=== PATIENT | female | born 2000 | race Caucasian/White ===

== ENCOUNTER → 2021-01-13 07:42 | Outpatient (CLI) | payer OTHER, SELFPAY ==
--- NOTE | 2021-01-13 07:44 | DI.US.S_ITS ---
PROCEDURE: US OB >= 14 WEEKS FETUS INDICATIONS: ANATOMY SCAN OUTSIDE/PRIOR DATING DATA: Last menstrual period (LMP): 07/26/2020 . LMP-based estimated date of delivery (LALI): 05/02/2021 . First dating scan (date and location): 01/13/2021 . Estimated date of delivery (LALI) from first dating scan: 03/01/2022 . TECHNIQUE: Real-time scanning was performed of the fetus, with image documentation and biometric measurements. COMPARISON: None. FINDINGS: General: A single living intrauterine gestation is present. Presentation: Vertex. Placenta: Placental position is anterior , without previa. Amniotic fluid index: 15.1 cm, normal range is 5-24 cm. heart rate: 141 beats per minute. Maternal cervical canal: 3.4 cm long. Normal lower limit is 2.5 cm. biometrics: Biparietal diameter: 5.9 cm 24 weeks 2 days Head circumference: 22.6 cm 24 weeks 4 days Abdominal circumference: 21.4 cm 25 weeks 6 days Femur length: 4.2 cm 23 weeks 5 days Estimated gestational age from initial scan: not applicable. Composite gestational age from present scan: 24 weeks 4 days Estimated weight and percentile: 749 g 62nd percentile Measurement variability for biometric dating: +/- 7 days from 14 weeks to 15 weeks 6 days gestation, +/- 10 days from 16 weeks to 21 weeks 6 days gestation, +/- 2 weeks from 22 weeks to 27 weeks 6 days gestation, +/- 3 weeks for 28 weeks gestation or later. weight reference: 4500 g or EFW >90/95% is considered macrosomia or large for gestational age. EFW <10% is small for gestational age. EFW 5% or less is considered intra-uterine growth restriction. Anatomic survey: Neuro: Not well seen. Face: Nose and lips, facial profile are normal. Spine: No evidence for spina bifida. Heart: 4-chambered heart is present, with normal ventricular outflow tracts. Diaphragm: Diaphragm is intact. Stomach: Left-sided stomach is present. Kidneys: No hydronephrosis. Normal is less than 5 mm in 2nd trimester, less than 7 mm in 3rd trimester. Cord: 3-vessel cord has orthotopic insertion. Bladder: Normal in size. Extremities: All 4 extremities identified. IMPRESSION: 1. Single live intrauterine . 2. Anatomy is within normal limits, noting intracranial contents were not well visualized and follow-up is recommended. Dictated by: Zohra Marshall M.D. on 01/19/2021 at 7:56 Approved by: Zohra Marshall M.D. on 01/19/2021 at 8:02
== END ==
PROVIDERS: Referring Provider Family Medicine; Visit Provider Family Medicine
DX: Z36.89 Encounter for other specified antenatal screening (principal); Z3A.24 24 weeks gestation of pregnancy
CPT/HCPCS: 76811

== ENCOUNTER → 2021-02-01 16:10 | Outpatient (CLI) | payer OTHER, SELFPAY ==
--- NOTE | 2021-02-01 16:11 | DI.US.S_ITS ---
PROCEDURE: US OB FOLLOW UP INDICATIONS: incomplete imaging on anatomy, brain OUTSIDE/PRIOR DATING DATA: Last menstrual period (LMP): 07/26/20 . LMP-based estimated date of delivery (LALI): 05/02/21 First dating scan (date and location): 01/13/21 . Estimated date of delivery (LALI) from first dating scan: 05/01/21 . TECHNIQUE: Real-time scanning was performed of the fetus, with image documentation. Endovaginal scanning: Yes, for improved visualization of the cervix COMPARISON: [facility], OB >= 14 WEEKS FETUS, 01/13/2021, 8:18. FINDINGS: A single living intrauterine gestation is present. Presentation: Breech. Placenta: Placental position is anterior , without previa. Amniotic fluid index: 15 cm, normal range is 5-24 cm. heart rate: 150 beats per minute. Maternal cervical canal: 2.5-2.7 cm long. Normal lower limit is 2.5 cm. There is U shaped funneling at the internal cervical os for a length of about 2.3 cm and a width of 1.7 cm. Estimated gestational age from initial scan: 27 weeks two days Intracranial structures including lateral ventricles and posterior fossa appears normal for gestational age. Incidental note made of normal facial features. . IMPRESSION: 1. Single living intrauterine with completion of normal anatomy scan. 2. U shaped cervical funneling and cervix at the low end of normal. 3. Report alert called to the office of the ordering provider. Dictated by: Kristina Day M.D. on 02/02/2021 at 8:06 Approved by: Kristina Day M.D. on 02/02/2021 at 8:19
== END ==
PROVIDERS: Referring Provider Family Medicine; Visit Provider Family Medicine
DX: Z36.2 Encounter for other antenatal screening follow-up (principal)
CPT/HCPCS: 76816; 76817

== ENCOUNTER → 2021-02-13 15:35 | Outpatient (CLI) | payer OTHER, SELFPAY ==
[2021-02-13 17:26] LABS: Hematocrit 33.3 % (36-46); Hemoglobin 11.6 g/dL (12.0-16.0)
[2021-02-13 17:43] LABS: GTT (PREG) 1 Hour PP 50gm Dose 102 mg/dL (76-139)
== END ==
PROVIDERS: Referring Provider Family Medicine; Visit Provider Family Medicine
DX: Z34.82 Encounter for supervision of other normal pregnancy, second trimester (principal)
CPT/HCPCS: 36415; 82950; 85014; 85018